=== PATIENT | male | born 1995 | race Caucasian/White ===

== ENCOUNTER 2020-02-29 07:44 | Day surgery (SDC) | payer OTHER, SELFPAY ==
[~2020-02-29] VITALS: Ht 170.2 cm; Wt 130.6 kg
[~2020-02-29 07:44] MED LIST: THE PO
[2020-02-29 08:27] LABS: BASOPHILS % (AUTO) 0.5 % (0.0-2.0); EOSINOPHILS # (AUTO) 0.1 K/uL (0-0.4); EOSINOPHILS % (AUTO) 1.1 % (0.0-4.0); HEMOGLOBIN 15.7 g/dL (12.0-18.0); LYMPHOCYTES # (AUTO) 2.2 K/uL (2.0-11.5); LYMPHOCYTES % (AUTO) 31.7 % (20.5-51.1); MEAN CORPUSCULAR HEMOGLOBIN 30 pg (27-31); MEAN CORPUSCULAR HGB CONC 33 g/dL (33-37); MEAN CORPUSCULAR VOLUME 89.3 fL (80-94); MONOCYTES # (AUTO) 0.6 K/uL (0.8-1.0); MONOCYTES % (AUTO) 8.1 % (1.7-9.3); NEUTROPHILS # (AUTO) 4.1 K/uL (1.8-7.7); NEUTROPHILS % (AUTO) 58.6 % (42.2-75.2); PROTHROMBIN TIME 11.6 secs (10.8-13.4); RED BLOOD CELL COUNT(AUTO) 5.26 MIL/uL (4.20-6.10); RED CELL DISTRIBUTION WIDTH 13.9 % (11.6-13.7)
[2020-02-29] MEDS ORDERED: LIDOCAINE 2% 1000 MG/50 ML VIAL INJ ONE (08:48)
[2020-02-29 08:53] LABS: PLATELET COUNT (AUTO) 144 K/uL (140-450)
[2020-02-29] MEDS ORDERED: fentaNYL citrate 0.05 MG/ML VIAL ONE (08:53)
[2020-02-29] MEDS ORDERED: fentaNYL citrate 0.05 MG/ML VIAL IVP ONE (10:10)
== END 2020-02-29 10:30 | disposition home or self-care (01) ==
LOC: MDS 07:44 → MMU 07:45 → MDS 10:30
PROVIDERS: ATTEND Internal Medicine Gastroenterology
DX: K76.0 Fatty (change of) liver, not elsewhere classified (principal); E11.9 Type 2 diabetes mellitus without complications; Z80.0 Family history of malignant neoplasm of digestive organs; E66.01 Morbid (severe) obesity due to excess calories; Z68.42 Body mass index [BMI] 45.0-49.9, adult; Z20.828 Contact with and (suspected) exposure to other viral communicable diseases
CPT/HCPCS: 36415; 47000; 76942; 85025; 85610; 85730; J2001; J3010; Q0092; U0003; 88307; 88313